=== PATIENT | female | born 1965 | race Caucasian/White ===

== ENCOUNTER 2018-09-13 14:24 | Emergency (ER) | payer OTHER ==
[~2018-09-13] VITALS: Ht 170.2 cm; Wt 108.4 kg
[2018-09-13 14:31] VITALS: BP 136/77
--- NOTE | 2018-09-13 14:52 | NUR ---
DR. JIMENEZ MADE AWARE PT 12 LEAD EKG REPORT. PT WENT TO LOBBY IN A STABLE CONDITION.
[2018-09-13 16:04] LABS: BASOPHILS % (AUTO) 0.9 % (0.0-2.0); EOSINOPHILS # (AUTO) 0.1 K/uL (0-0.4); EOSINOPHILS % (AUTO) 1.9 % (0.0-4.0); HEMATOCRIT 37.3 % (36-48); HEMOGLOBIN 12.1 g/dL (12.0-16.0); LYMPHOCYTES # (AUTO) 1.1 K/uL (2.5-16.5); LYMPHOCYTES % (AUTO) 20.3 % (20.5-51.1); MEAN CORPUSCULAR HEMOGLOBIN 30 pg (27-31); MEAN CORPUSCULAR HGB CONC 32 g/dL (33-37); MEAN CORPUSCULAR VOLUME 91.9 fL (80-94); MONOCYTES # (AUTO) 0.3 K/uL (0.8-1.0); MONOCYTES % (AUTO) 6.4 % (1.7-9.3); NEUTROPHILS # (AUTO) 3.7 K/uL (1.8-7.7); NEUTROPHILS % (AUTO) 70.5 % (42.2-75.2); PLATELET COUNT (AUTO) 233 K/uL (140-450); RED BLOOD CELL COUNT(AUTO) 4.06 MIL/uL (4.20-5.40); RED CELL DISTRIBUTION WIDTH 15.3 % (11.6-13.7); WHITE BLOOD COUNT (AUTO) 5.3 K/uL (4.8-10.8)
--- NOTE | 2018-09-13 16:20 | NUR ---
PT PRESENTS TO ED WITH C/O ABD PAIN; PER PT SHE WAS RECENTLY DIAGNOSED WITH OVARIAN CYSTS; DIDNT FOLLOWED UP WITH [facility] SU[facility]IST PHYSICIAN. NO N/V/D. DENIES ANY SOB OR CP AT THIS TIME. PT STATED SHE HAD A FEVER OF 103 ORALLY THIS MORNING.; AFEBRILE AT THIS TIME. PLACED IN GOWN, CONNECTED TO SANITARY INSPECTOR. BED LOCKED AND IN LOWEST CONDITION. ERMD TO EVALUATE PT.
[2018-09-13 16:24] LABS: ALBUMIN 3.6 g/dL (3.4-5.0); ANION GAP 12.2 (8-16); CARBON DIOXIDE 27.7 mmol/L (21-32); CREATININE 1.1 mg/dL (0.6-1.3); POTASSIUM 3.9 mmol/L (3.5-5.1); TOTAL BILIRUBIN 0.6 mg/dL (0.0-1.0)
[2018-09-13 17:05] LABS: APPEARANCE,URINE SL CLOUDY (CLEAR); BILIRUBIN,URINE NEGATIVE (NEGATIVE); BLOOD, URINE 3+ (NEGATIVE); COLOR,URINE YELLOW (YELLOW); LEUKOCYTE ESTERASE ,URINE NEGATIVE (NEGATIVE); NITRITE, URINE POSITIVE (NEGATIVE); UGLUCOSE NEGATIVE (NEGATIVE)
[2018-09-13] MEDS ORDERED: KETOROLAC 60 MG/2 ML VIAL IM ONE (17:05)
[2018-09-13 17:27] LABS: WBC,URINE 0-5 /HPF (0-5)
[2018-09-13 17:47] VITALS: BP 132/72
--- NOTE | 2018-09-13 17:49 | NUR ---
Patient discharged with v/s stable. Written and verbal after care instructions given and explained. Patient alert, oriented and verbalized understanding of instructions. Ambulatory with steady gait. All questions addressed prior to discharge. ID band removed. Patient advised to follow up with PMD. Rx of Motrin and Tramadol given. Patient educated on indication of medication including possible reaction and side effects. Opportunity to ask questions provided and answered.
== END 2018-09-13 17:49 | disposition home or self-care (01) ==
LOC: MED 14:24
DX: N83.209 Unspecified ovarian cyst, unspecified side (principal); Z88.5 Allergy status to narcotic agent; Z88.8 Allergy status to other drugs, medicaments and biological substances
CPT/HCPCS: 36415; 80053; 81001; 81025; 85025; 87086; 87186; 96372; 99283; J1885

== ENCOUNTER 2020-02-09 10:20 | Emergency (ER) | payer OTHER ==
[~2020-02-09] VITALS: Ht 170.2 cm; Wt 106.6 kg
[2020-02-09 10:56] VITALS: BP 132/92
--- NOTE | 2020-02-09 11:00 | NUR ---
PT SENT OUTSIDE TO COVID TENT TO WAIT FOR MSE. COVID PRECAUTIONS IN PLACE. PT STATES SHE WAS TESTED FOR COVID FRIDAY AND GOT RESULTS YESTERDAY STATING SHE IS NEGATIVE.
--- NOTE | 2020-02-09 11:18 | NUR ---
54 y/o female presented to ED c/o Flu like symptoms x 3 days. Pt + chills, dizziness, CP radiating to BL shoulders, cough , vomitting. Pt denies fever, diarrhea. Pt rr even and unlabored. Lung sound BL clear. Abd soft, round and nontender. Active bowel sounds in all quads. Pt sitting in chair, no acute distress . ERMD made aware of pt status. pmh: Breast cancer ax: aripiprazole , codeine
--- NOTE | 2020-02-09 11:26 | NUR ---
SILVA AT CHAIRSIDE FOR MEDICAL EVALUATION.
[2020-02-09] MEDS ORDERED: KETOROLAC 60 MG/2 ML VIAL IM ONE (11:30)
[2020-02-09] MEDS ORDERED: ONDANSETRON 4 MG ODT PO ONE (11:30)
[2020-02-09 12:10] VITALS: BP 132/79
--- NOTE | 2020-02-09 12:10 | NUR ---
Patient discharged with v/s stable. Written and verbal after care instructions given and explained. Patient alert, oriented and verbalized understanding of instructions. Ambulatory with steady gait. All questions addressed prior to discharge. ID band removed. Patient advised to follow up with PMD. Rx of Zofran 8mg, Prednisone 20mg, Motrin 800mg given. Patient educated on indication of medication including possible reaction and side effects. Opportunity to ask questions provided and answered.
== END 2020-02-09 12:10 | disposition home or self-care (01) ==
LOC: MED 10:20
DX: M79.10 Myalgia, unspecified site (principal); R11.2 Nausea with vomiting, unspecified; R07.9 Chest pain, unspecified; Z88.5 Allergy status to narcotic agent; Z88.8 Allergy status to other drugs, medicaments and biological substances; Z85.3 Personal history of malignant neoplasm of breast
CPT/HCPCS: 96372; 99283; J1885; Q0162

== ENCOUNTER 2020-02-13 16:11 | Observation (INO) | payer OTHER, SELFPAY ==
[~2020-02-13] VITALS: Ht 170.2 cm; Wt 106.6 kg
[2020-02-13] MEDS ORDERED: ACETAMINOPHEN EXTRA STRENGTH 500 MG TAB PO ONE (16:20)
[2020-02-13] MEDS ORDERED: ASPIRIN 325 MG TAB PO ONE (16:20)
[2020-02-13 16:31] VITALS: BP 126/71
[2020-02-13 16:52] LABS: BASOPHILS % (AUTO) 0.3 % (0.0-2.0); EOSINOPHILS % (AUTO) 0.1 % (0.0-4.0); HEMATOCRIT 38.7 % (36-48); HEMOGLOBIN 12.7 g/dL (12.0-16.0); LYMPHOCYTES # (AUTO) 0.8 K/uL (2.5-16.5); LYMPHOCYTES % (AUTO) 10.7 % (20.5-51.1); MEAN CORPUSCULAR HEMOGLOBIN 30 pg (27-31); MEAN CORPUSCULAR HGB CONC 33 g/dL (33-37); MONOCYTES # (AUTO) 0.1 K/uL (0.8-1.0); MONOCYTES % (AUTO) 1.6 % (1.7-9.3); NEUTROPHILS # (AUTO) 6.7 K/uL (1.8-7.7); NEUTROPHILS % (AUTO) 87.3 % (42.2-75.2); PLATELET COUNT (AUTO) 273 K/uL (140-450); RED CELL DISTRIBUTION WIDTH 14.7 % (11.6-13.7); WHITE BLOOD COUNT (AUTO) 7.7 K/uL (4.8-10.8)
[2020-02-13 17:06] LABS: ANION GAP 19.1 (8-16); CARBON DIOXIDE 23.4 mmol/L (21-32); CREATININE 1.5 mg/dL (0.6-1.3); POTASSIUM 3.5 mmol/L (3.5-5.1)
[2020-02-13] MEDS ORDERED: NITROGLYCERIN 0.4 MG TAB SL ONE (17:55)
--- NOTE | 2020-02-13 18:20 | NUR ---
Evelin swab collected.
[2020-02-13] MEDS ORDERED: RISP0.5T3 PO (19:20)
[2020-02-13] MEDS ORDERED: SERT25TA PO (19:20)
[2020-02-13] MEDS ORDERED: ONDANSETRON 4 MG/2 ML VIAL IVP PRN (19:40)
[2020-02-13] MEDS ORDERED: ZOLPIDEM 5 MG TAB PO PRN (19:40)
[2020-02-13] MEDS ORDERED: ACETAMINOPHEN 325 MG TAB PO PRN (19:40)
[2020-02-13] MEDS ORDERED: METOCLOPRAMIDE 10 MG/2 ML INJ VIAL IVP PRN (19:40)
[2020-02-13] MEDS ORDERED: MORPHINE SULFATE 4 MG/ML SYR IVP PRN (19:40)
--- NOTE | 2020-02-13 20:26 | NUR ---
PT MOVED TO ER 13
[2020-02-13] MEDS: NACL 0.9% 1,000 ML IV SCH (21:00)
--- NOTE | 2020-02-13 21:00 | NUR ---
left hand 20g IV initiated. tolerated well.
--- NOTE | 2020-02-13 22:30 | NUR ---
appears in no distress at this time. VSS. no other needs .
--- NOTE | 2020-02-14 00:08 | NUR ---
pt sleeping in bed. visible chest rise and fall. VSS. no further actions needed at this time.
[2020-02-14 02:58] LABS: BASOPHILS % (AUTO) 0.6 % (0.0-2.0); EOSINOPHILS % (AUTO) 0.2 % (0.0-4.0); HEMATOCRIT 35.5 % (36-48); HEMOGLOBIN 11.7 g/dL (12.0-16.0); LYMPHOCYTES # (AUTO) 1.4 K/uL (2.5-16.5); LYMPHOCYTES % (AUTO) 18.9 % (20.5-51.1); MEAN CORPUSCULAR HEMOGLOBIN 30 pg (27-31); MEAN CORPUSCULAR HGB CONC 33 g/dL (33-37); MONOCYTES # (AUTO) 0.5 K/uL (0.8-1.0); MONOCYTES % (AUTO) 6.4 % (1.7-9.3); NEUTROPHILS # (AUTO) 5.4 K/uL (1.8-7.7); NEUTROPHILS % (AUTO) 73.9 % (42.2-75.2); PLATELET COUNT (AUTO) 249 K/uL (140-450); RED BLOOD CELL COUNT(AUTO) 3.86 MIL/uL (4.20-5.40); RED CELL DISTRIBUTION WIDTH 14.1 % (11.6-13.7); WHITE BLOOD COUNT (AUTO) 7.3 K/uL (4.8-10.8)
[2020-02-14 03:12] LABS: ANION GAP 16.6 (8-16); CARBON DIOXIDE 23.7 mmol/L (21-32); CREATININE 1.2 mg/dL (0.6-1.3); POTASSIUM 3.3 mmol/L (3.5-5.1)
[2020-02-14 03:23] LABS: CHOL/HDL RATIO 3.5 (1-4.5)
[2020-02-14] MEDS ORDERED: POTASSIUM CHLORIDE 10 MEQ TABER PO SCH (08:00)
[2020-02-14] MEDS ORDERED: ASPIRIN 81 MG TAB.CHEW PO SCH (09:00)
--- NOTE | 2020-02-14 09:23 | NUR ---
NO COAGULATION LABS PERFORMED, HEPARIN HELD. DR ZALDIVAR MADE AWARE
--- NOTE | 2020-02-14 09:24 | NUR ---
PATIENT HAS BEEN SCREENED AND CATEGORIZED MODERATE NUTRITION RISK. PATIENT WILL BE SEEN WITHIN 3-5 DAYS OF ADMISSION. 02/16/20 02/17/[address]
--- NOTE | 2020-02-14 09:30 | NUR ---
PT ALERT AND AWAKE, BREATHING EVEN AND UNLABORED. NO DISTRESS NOTED
[2020-02-14] MEDS: NACL 0.9% 1,000 ML IV SCH (09:31)
--- NOTE | 2020-02-14 09:39 | NUR ---
PER DR ELIZABETH IT IS OKAY TO NOT GIVE HEPARIN, WILL NOT ORDER COAGULATION LABS RIGHT NOW
--- NOTE | 2020-02-14 09:41 | NUR ---
PT STATES HAS CHEST PAIN STILL, WILL GIVE PRN ZOFRAN AND MORPHINE
[2020-02-14] MEDS ORDERED: NAPR-54 PO (13:42)
[2020-02-14] MEDS ORDERED: FAMO-90 PO (13:42)
[2020-02-14] MEDS ORDERED: ATOR10TA PO (13:44)
[2020-02-14 14:39] VITALS: BP 134/88
--- NOTE | 2020-02-14 14:45 | NUR ---
PT DISCHARGED FROM FACILITY AND LEFT AT THIS TIME, TO BE PICKED UP BY FAMILY
[2020-02-15] MEDS ORDERED: risperiDONE 1 MG TAB PO SCH (09:00)
[2020-02-15] MEDS ORDERED: SERTRALINE 50 MG TAB PO SCH (09:00)
--- NOTE | 2020-02-24 12:37 | NUR ---
LATE ENTRY -- NORMAL SALINE ENDED 1430 02/13
== END 2020-02-14 14:45 | disposition home or self-care (01) ==
LOC: MED 16:11 → MTU 19:44
PROVIDERS: ADMIT Hospitalist; ATTEND Hospitalist
DX: R07.89 Other chest pain (principal); Z20.828 Contact with and (suspected) exposure to other viral communicable diseases; E87.6 Hypokalemia; E78.5 Hyperlipidemia, unspecified; F31.9 Bipolar disorder, unspecified; I11.9 Hypertensive heart disease without heart failure; C50.919 Malignant neoplasm of unspecified site of unspecified female breast; E66.9 Obesity, unspecified; Z79.899 Other long term (current) drug therapy; Z88.5 Allergy status to narcotic agent; Z88.8 Allergy status to other drugs, medicaments and biological substances; Z68.36 Body mass index [BMI] 36.0-36.9, adult
CPT/HCPCS: 36415; 71045; 80048; 80061; 83036; 84484; 85025; 87426; 93005; 96361; 96372; 96374; 96375; 99285; G0378; J1644; J2270; J2405

== ENCOUNTER 2020-02-23 12:28 | Emergency (ER) | payer OTHER, SELFPAY ==
[~2020-02-23] VITALS: Ht 170.2 cm; Wt 106.6 kg
[~2020-02-23 12:28] MED LIST: ATOR10TA PO; FAMO-90 PO; NAPR-54 PO; RISP0.5T3 PO; SERT25TA PO
[2020-02-23 12:49] VITALS: BP 154/73
[2020-02-23] MEDS ORDERED: KETOROLAC 30 MG/ML VIAL IM ONE (13:25)
--- NOTE | 2020-02-23 13:46 | NUR ---
COVID SWAB COLLECTED. SENT TO LAB.
[2020-02-23 14:04] LABS: BASOPHILS # (AUTO) 0.1 K/uL (0.00-0.22); BASOPHILS % (AUTO) 0.9 % (0.0-2.0); EOSINOPHILS # (AUTO) 0.2 K/uL (0-0.4); EOSINOPHILS % (AUTO) 2.2 % (0.0-4.0); HEMOGLOBIN 12.2 g/dL (12.0-16.0); LYMPHOCYTES # (AUTO) 1.1 K/uL (2.5-16.5); LYMPHOCYTES % (AUTO) 16.1 % (20.5-51.1); MEAN CORPUSCULAR HEMOGLOBIN 30 pg (27-31); MEAN CORPUSCULAR HGB CONC 33 g/dL (33-37); MEAN CORPUSCULAR VOLUME 92.1 fL (80-94); MONOCYTES # (AUTO) 0.4 K/uL (0.8-1.0); MONOCYTES % (AUTO) 5.5 % (1.7-9.3); NEUTROPHILS # (AUTO) 5.3 K/uL (1.8-7.7); NEUTROPHILS % (AUTO) 75.3 % (42.2-75.2); PLATELET COUNT (AUTO) 249 K/uL (140-450); RED BLOOD CELL COUNT(AUTO) 4.02 MIL/uL (4.20-5.40); RED CELL DISTRIBUTION WIDTH 14.5 % (11.6-13.7)
[2020-02-23 14:29] LABS: ALBUMIN 3.9 g/dL (3.4-5.0); ANION GAP 13.2 (8-16); CREATININE 1.2 mg/dL (0.6-1.3); POTASSIUM 3.2 mmol/L (3.5-5.1); TOTAL BILIRUBIN 1.1 mg/dL (0.0-1.0)
--- NOTE | 2020-02-23 16:13 | NUR ---
PT DISCHARGED BY DR. JOHNSON.
== END 2020-02-23 16:13 | disposition home or self-care (01) ==
LOC: MED 12:28
DX: R07.89 Other chest pain (principal); Z85.3 Personal history of malignant neoplasm of breast; Z79.899 Other long term (current) drug therapy; Z88.5 Allergy status to narcotic agent; Z88.8 Allergy status to other drugs, medicaments and biological substances
CPT/HCPCS: 36415; 71045; 80053; 84484; 85025; 93005; 96372; 99285; J1885